=== PATIENT | male | born 1955 | race African-American/Black ===

== ENCOUNTER 2016-10-31 12:07 | Observation (INO) | payer BC ==
[2016-10-31] VITALS (7 sets, daily range): BP systolic 105–158; BP diastolic 54–104
[~2016-10-31] VITALS: Ht 180.3 cm; Wt 98.9 kg
--- NOTE | ~2016-10-31 | 2DMMODE ---
[facility] [address] [facility] [place] [address] 2 D/M-MODE ECHOCARDIOGRAM Name: JD CASTAÑEDA Room #: 203-P [facility] IN M.R.#: [id number] Admission: 10/31/16 Attend Phys: Cedric Marquez, Discharge: Date of : 53 Date of Service: 11/01/16 1134 Report #: [id number] THIS REPORT FOR: //name// APPROVED REPORT Study performed: 11/01/2016 08:20:26 EXAM: Comprehensive 2D, Doppler, and color-flow Echocardiogram Patient Location: Bedside Room #: 203 Status: routine BSA: 2.19 BP: 130/76 mmHg Other Information Study Quality: Adequate Indications Atrial Fibrillation 2D Dimensions RVDd: 39.36 mm LVEF(%): 75.10 (>50%) IVSd: 10.01 (7-11mm) LVOT Diam: 21.34 (18-24mm) LVDd: 45.65 mm PWd: 9.79 (7-11mm) Ascending Ao: 34.20 (22-36mm) LVDs: 25.66 (25-40mm) Aortic Root: 33.58 mm IVC: 2.00 mm White's LVEF: 75.10 % Volumes Left Atrial Volume (Systole) Single Plane 4CH: 56.07 mL Single Plane 2CH: 68.21 mL LA ESV Index: 32.00 mL/m2 Aortic Valve AoV Peak Parmjit.: 1.72 m/s AO Peak Gr.: 11.83 mmHg LVOT Max P.89 mmHg LVOT Max V: 1.11 m/s JEFFREY Vmax: 2.30 cm2 Mitral Valve E/A Ratio: 1.1 MV Decel. Time: 237.09 ms MV E Max Parmjit.: 0.70 m/s [facility] [place] [address] 2 D/M-MODE ECHOCARDIOGRAM Name: JD CASTAÑEDA Room #: 203-P [facility] IN M.R.#: [id number] Admission: 10/31/16 Attend Phys: Cedric Marquez, Discharge: Date of : 53 Date of Service: 11/01/16 1134 Report #: [id number] MV A Parmjit.: 0.65 m/s MV PHT: 68.76 ms IVRT: 96.89 ms Pulmonary Vein P Vein S: 0.39 m/s P Vein A: 0.30 m/s P Vein D: 0.25 m/s P Vein A Dur.: 124.6 msec P Vein S/D Ratio: 1.56 Tricuspid Valve TR Peak Parmjit.: 2.34 m/s RAP Estimate: 5.00 mmHg TR Peak Gr.: 21.90 mmHg PA Pressure: 27.00 mmHg Left Ventricle The left ventricle is normal size. There is normal LV segmental wall motion. There is normal left ventricular wall thickness. The left ventricular systolic function is normal. The left ventricular ejection fraction is within the normal range. LVEF is 65-70%. Grade II - pseudonormal filling dynamics. Right Ventricle The right ventricle is normal size. The right ventricular systolic function is normal. Atria The left atrium size is normal. Right atrium is dilated. Aortic Valve The aortic valve is not well visualized. No aortic regurgitation is present. There is no aortic valvular stenosis. Mitral Valve Mitral valve leaflets are mildly thickened. Trace mitral regurgitation. No evidence of mitral valve stenosis. Tricuspid Valve The tricuspid valve is normal in structure. There is trace tricuspid regurgitation. The right atrial pressure is estimated at 5 mmHg. There is no pulmonary hypertension with an estimated PAP of 27 mmHg. Pulmonic Valve The pulmonary valve is normal in structure. Trace pulmonic regurgitation. [address] [address] 2 D/M-MODE ECHOCARDIOGRAM Name: JD CASTAÑEDA Room #: 203-P [facility] IN ..#: [id number] Admission: 10/31/16 Attend Phys: Cedric Marquez, Discharge: Date of : 53 Date of Service: 11/01/16 1134 Report #: [id number] Great Vessels The aortic root is normal in size. The ascending aorta is normal in size. IVC is normal in size and collapses >50% with inspiration. Pericardium There is no pericardial effusion. <Conclusion> The left ventricle is normal size. LVEF is 65-70%. Right atrium is dilated. The aortic valve is not well visualized. No aortic regurgitation is present. There is no aortic valvular stenosis. Mitral valve leaflets are mildly thickened. Trace mitral regurgitation. The tricuspid valve is normal in structure. There is trace tricuspid regurgitation. The right atrial pressure is estimated at 5 mmHg. There is no pulmonary hypertension with an estimated PAP of 27 mmHg. The pulmonary valve is normal in structure. Trace pulmonic regurgitation. <ELECTRONICALLY SIGNED> By: Gregorio Chisholm MD 11/01/16 1134 1134 1134 Gregorio Chisholm MD /INF
--- NOTE | ~2016-10-31 | EKG ---
[address] [address] ELECTROCARDIOGRAM REPORT Name: JD CASTAÑEDA Room #: [address] [place] [address].#: [id number] Admission: 10/31/16 Attend Phys: Cedric Marquez MD Discharge: 11/01/16 Date of : 53 Report #: [id number] THIS REPORT FOR: //name// [facility] Test Date: 2016-11-01 Test Time: 06:25:58 Pat Name: JD CASTAÑEDA Department: Room: [facility] Gender: M [employer]: : 1955 Requested By: Kwaku Mack Order Number: [id number] MD: Ayaz Henderson Measurements Intervals [place] Rate: 58 P: 0 CO: 208 QRS: 56 QRSD: 91 T: 147 QT: 401 QTc: 394 Interpretive Statements Incomplete EKG Sinus rhythm Nonspecific ST and T wave abnormality Compared to ECG 10/31/2016 12:12:11 Sinus rhythm has replaced atrial flutter Electronically Signed On 11-02-2016 10:02:10 CDT by Ayaz Henderson [email or web address] <ELECTRONICALLY SIGNED> By: Ayaz Henderson MD, [facility] 11/02/16 1002 0625 0625 Ayaz Henderson MD, [facility] /EPI
--- NOTE | ~2016-10-31 | EKG ---
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
[2016-10-31 12:28] LABS: BASOPHILS 0.9 % (0.0-2.0); EOSINOPHILS 1.9 % (0.0-3.0); MCH 29.9 pg (26.0-34.0); MCV 87.8 fL (80.0-100.0); MONOCYTES 5.8 % (1.0-8.0); PLATELET COUNT 205 thou/uL (150-400); POLYS 52.4 % (36.0-66.0); RDW 13.4 % (10.5-14.5); WBC 5.8 thou/uL (4.0-11.0)
[2016-10-31 12:33] LABS: MANUAL DIFF NO
[2016-10-31 12:35] LABS: ANION GAP 9 mmol/L (7-16); BUN 14 mg/dL (7-18); CHLORIDE 108 mmol/L (98-107); CO2 26 mmol/L (21-32); CREATININE 1.2 mg/dL (0.7-1.3); GLUCOSE 153 mg/dL (74-106); SODIUM 143 mmol/L (136-145)
[2016-10-31 12:44] LABS: TROPONIN-I < 0.04 ng/mL (<0.04-0.07)
[2016-11-01 04:01] VITALS: BP 109/65
[2016-11-01 06:12] VITALS: BP 126/87
[2016-11-01 07:21] VITALS: BP 130/76
[2016-11-01 08:54] LABS: CALCIUM 8.5 mg/dL (8.5-10.1); CREATININE 1.3 mg/dL (0.7-1.3); MAGNESIUM 1.9 mg/dL (1.8-2.4); POTASSIUM 4.2 mmol/L (3.5-5.1)
[2016-11-01 11:34] VITALS: BP 149/81
[2016-11-01 16:14] VITALS: BP 149/81
[2016-11-01 17:24] VITALS: BP 149/81
== END 2016-11-01 17:48 | disposition home or self-care (01) ==
LOC: ER 12:07 → 2N 15:47 → EROBS 15:47 → 2N 17:37
PROVIDERS: Emergency Medicine; Internal Medicine
DX: I48.92 Unspecified atrial flutter (principal); R06.00 Dyspnea, unspecified; I10 Essential (primary) hypertension; R42 Dizziness and giddiness; R00.0 Tachycardia, unspecified; F17.210 Nicotine dependence, cigarettes, uncomplicated; Z72.89 Other problems related to lifestyle
CPT/HCPCS: 10081

== ENCOUNTER → 2017-03-31 | Outpatient (CLI) | payer BC ==
[~2017-03-31] MED LIST: ELIQUIS5 MG PO; TOPROL XL100 MG PO
== END ==
LOC: NUC 07:34
DX: I48.92 Unspecified atrial flutter (principal); R94.31 Abnormal electrocardiogram [ECG] [EKG]; I48.91 Unspecified atrial fibrillation; Z87.891 Personal history of nicotine dependence

== ENCOUNTER → 2017-04-05 | Outpatient (CLI) | payer BC ==
[~2017-04-05] VITALS: Ht 180.3 cm; Wt 100.2 kg
--- NOTE | ~2017-04-05 | TEE ---
[facility] [address] [place] [address] TRANSESOPHAGEAL ECHOCARDIOGRAM Name: JD CASTAÑEDA Room #: REG CL [facility]#: [id number] Admission: 04/05/17 Attend Phys: Ayaz Henderson, Discharge: Date of : 53 Date of Service: 04/05/17 0933 Report #: [id number] THIS REPORT FOR: //name// APPROVED REPORT Study performed: 04/05/2017 08:01:49 EXAM: Comprehensive 2D, Doppler, and color-flow Echocardiogram Patient Location: [facility] area Room #: 9 Status: routine BSA: 2.20 HR: 125 bpm BP: 125/89 mmHg Other Information Study Quality: Excellent Indications Atrial Fibrillation Echo Enhancing Agent Indication: Rule out Shunt Agent(s) / Amount(s) Used: Agitated Saline 7 cc Procedure After obtaining informed consent, patient underwent transesophageal echo in the [employer]. Type of Sedation : Conscious Sedation Sedation was administered by Torrie Martinez RN. Sedation start time: 804 Case end Time: 812 Sedation was achieved intravenously with: Versed (6 mg) Fentanyl (50 mcg) Transesophageal probe was inserted and advanced into esophagus without difficulty by Ayaz Henderson MD. Echo enhancement indication: R/O Septal defect. Echo enhancement agent administered: Agitated Saline The was performed without complications. Throughout the procedure, the blood pressure, pulse oximetry, cardiac rhythm, and rate were monitored. The patient tolerated the procedure without adverse effects. Recovery from conscious sedation was uneventful and vital signs were stable. [facility] [address] [place] [address] TRANSESOPHAGEAL ECHOCARDIOGRAM Name: JD CASTAÑEDA Room #: REG CL Precious#: [id number] Admission: 04/05/17 Attend Phys: Ayaz Henderson, Discharge: Date of : 53 Date of Service: 04/05/17 0933 Report #: [id number] Left Ventricle The left ventricle is normal size. There is normal left ventricular wall thickness. The left ventricular systolic function is normal. The left ventricular ejection fraction is within the normal range. LVEF is 60%. Right Ventricle The right ventricle is normal size. The right ventricular systolic function is normal. Atria Left atrium is dilated. No masses or clots in the left atrium or left atrial appendage. Interatrial septum is intact without evidence of ASD or PFO. Right atrium is dilated. Aortic Valve The aortic valve is normal in structure. No aortic regurgitation is present. There is no aortic valvular stenosis. Mitral Valve The mitral valve is normal in structure. Mild mitral regurgitation. No evidence of mitral valve stenosis. Tricuspid Valve The tricuspid valve is normal in structure. Mild tricuspid regurgitation. Pulmonic Valve The pulmonary valve is normal in structure. There is no pulmonic valvular regurgitation. Great Vessels The aortic root is normal in size. Pericardium There is no pericardial effusion. <Conclusion> The left ventricular systolic function is normal. LVEF is 60%. No shunting by contrast bubble injection Both atria are dilated. No masses or clots in the left atrium or left atrial appendage. The aortic valve is normal in structure. No aortic regurgitation or stenosis The mitral valve is normal in structure. Mild mitral [facility] [address] [address] TRANSESOPHAGEAL ECHOCARDIOGRAM Name: JD CASTAÑEDA Room #: REG [facility]#: [id number] Admission: 04/05/17 Attend Phys: Ayaz Henderson, Discharge: Date of : 53 Date of Service: 04/05/17932 Report #: [id number] regurgitation. Minimal atherosclerosis in thoracic aorta, no aneurysm There is no pericardial effusion. <ELECTRONICALLY SIGNED> By: Ayaz Henderson MD, [facility] 04/05/17932 2 2 Ayaz Henderson MD, [facility] /INF
[2017-04-05 07:30] VITALS: BP 142/90
== END | disposition home or self-care (01) ==
LOC: CATH 06:31
DX: I34.0 Nonrheumatic mitral (valve) insufficiency (principal); I07.1 Rheumatic tricuspid insufficiency; I70.0 Atherosclerosis of aorta; F17.210 Nicotine dependence, cigarettes, uncomplicated; Z98.890 Other specified postprocedural states; Z79.899 Other long term (current) drug therapy

== ENCOUNTER 2017-04-06 06:35 | Observation (INO) | payer BC ==
[~2017-04-06] VITALS: Ht 180.3 cm; Wt 104.1 kg
--- NOTE | ~2017-04-06 | D ---
[facility] [place] [place] [address] DISCHARGE SUMMARY Name: JD CASTAÑEDA Room #: DEP BESS Lang#: [id number] Admission: 04/06/17 Attend Phys: Gume Jauregui MD Discharge: 04/07/17 Date of : 53 Report #: [id number] THIS REPORT FOR: //name// CC: Rashi Jauregui DISCHARGE DIAGNOSES: Atrial flutter. PROCEDURES PERFORMED: Atrial flutter ablation. HISTORY: The patient is a 61-year-old with history of recurrent atrial flutter, who is here for elective ablation. He underwent successful ablation of a clockwise typical atrial flutter. The procedure was straightforward and without complications. In holding, he coughed and had some rebleeding from the right groin and several hours later, he had another coughing spell and had some mild bleeding from the right groin. Therefore, I recommended that he stay overnight to ensure hemostasis was obtained. HOSPITAL COURSE: He was monitored overnight and did well. Telemetry remained in sinus rhythm. Following day, his groin looked to be within normal limits. He denied any chest pain or shortness of breath. As such, he was deemed stable for discharge home with followup with me in 3 months. He will continue his current anticoagulation and beta-bhargavi and see me at that time. <ELECTRONICALLY SIGNED> By: Gume Jauregui MD 04/07/17 1642 Gume Jauregui MD /abdifatah
--- NOTE | ~2017-04-06 | P ---
[facility] [place] [address] PROCEDURE REPORT Name: JD CASTAÑEDA Room #: 210-P [facility] Donna Lang#: [id number] Admission: 04/06/17 Attend Phys: Gume Jauregui MD Discharge: 04/07/17 Date of : 53 Report #: [id number] THIS REPORT FOR: //name// CC: Rashi Jauregui PREOPERATIVE DIAGNOSIS: Typical atrial flutter. POSTOPERATIVE DIAGNOSIS: Typical atrial flutter. PROCEDURES PERFORMED: 1. Ablation of SVT, CPT code 00457. 2. EP left atrial pacing and recording, CPT code 51802. 3. Program stimulation after IV, CPT code 77782. 4. 3D mapping EP, CPT code 61790. HISTORY: The patient has a history of recurrent atrial flutter and is here for an ablation. ANESTHESIA: The patient underwent MAC anesthesia with no anesthesia-related complications. DESCRIPTION OF PROCEDURE: The patient underwent informed consent. We discussed the details of the procedure including risks, which include but not limited to bleeding, vascular damage, cardiac perforation, stroke, NM and damage to the catawba conduction system requiring permanent pacemaker. He understood these risks and was willing to proceed. As such, the patient was brought to the EP laboratory in fasting and unsedated state and prepped and draped in a sterile fashion. Next, I obtained access to the right femoral vein x 3. I placed short sheaths using the modified Seldinger technique. I placed an 8-Finnish and two 7-Finnish locking sheaths. Under fluoroscopy, I placed a decapolar catheter easily in the coronary sinus and a Halo catheter into the right atrium. The patient at baseline was in atrial flutter with atrial cycle length of 240-260 milliseconds. The activation was proximal to distal along the coronary sinus and was clockwise along the Halo catheter in the right atrium. Next, pacing was performed from the CS and from the right atrium. The post-pacing interval minus tachycardia cycle length was anywhere from 20-60 milliseconds. There was some wobble in the atrial cycle length. Next, I placed an 8 mm ablation catheter into the right atrium and I created a 3D geometry and activation map which was consistent with cavotricuspid isthmus dependent flutter. Next, I placed a ramp sheath into the right atrium and placed the 8 mm ablation catheter into the ramp sheath and performed ablation at 6:00 along the cavotricuspid isthmus. Next, ablation was performed at 6:00 along the cavotricuspid isthmus. There was acute termination along the posterior aspect of my line. Initially, the transisthmus conduction time was 135 milliseconds with an activation sequence consistent with bidirectional [facility] [address] [place] [address] PROCEDURE REPORT Name: JD CASTAÑEDA Room #: 210-P [facility] Donna Lang#: [id number] Admission: 04/06/17 Attend Phys: Gume Jauregui MD Discharge: 04/07/17 Date of : 53 Report #: [id number] block. I decided to perform additional ablation guided by sharp electrograms and performed a more lateral line. This resulted in a transisthmus conduction time of 165 milliseconds with evidence of bidirectional block. Post-ablation and EP study was performed. Atrial burst pacing was performed and AV block was noted at 340 milliseconds. AV tam ERP was noted at 270 milliseconds at a [address] cycle length and there were single AV tam echoes noted. Isoproterenol infusion was initiated at 1 mcg per minute and AV block was noted at 230 milliseconds and atrial ERP was noted at 200 milliseconds at a [address] cycle length. Isoproterenol was discontinued and I continued performing an EP study. There were no other inducible arrhythmias noted. Post-ablation, the patient remained in sinus rhythm with no other arrhythmias noted. As such, all catheters and sheaths were pulled. Hemostasis obtained. The patient awoke neurologically and hemodynamically intact with no complications and no significant bleeding. CONCLUSIONS: 1. Successful ablation of typical cavotricuspid isthmus dependent flutter with evidence of bidirectional block post-ablation. 2. Normal SA tam function. 3. Normal AV tam function. 4. Normal His-Purkinje function. 5. No other inducible arrhythmias on or off isoproterenol infusion. <ELECTRONICALLY SIGNED> By: Gume Jauregui MD 04/25/17 0904 1136 48 Gume Jauregui MD /nt
[2017-04-06 06:50] VITALS: BP 120/90
[2017-04-06 07:10] LABS: ABSOLUTE NEUTROPHILS 2.6 thou/uL (1.4-8.2); BASOPHILS 1.1 % (0.0-2.0); EOSINOPHILS 2.9 % (0.0-3.0); HEMATOCRIT 48.7 % (42.0-52.0); HEMOGLOBIN 16.9 gm/dL (14.0-18.0); LYMPHOCYTES 46.5 % (24.0-44.0); MCH 30.1 pg (26.0-34.0); MCHC 34.8 g/dL (28.0-37.0); MCV 86.4 fL (80.0-100.0); MONOCYTES 6.5 % (1.0-8.0); PLATELET COUNT 235 thou/uL (150-400); RBC 5.63 mil/uL (4.50-6.00); RDW 13.5 % (10.5-14.5); WBC 6.1 thou/uL (4.0-11.0)
[2017-04-06 07:29] LABS: CALCIUM 8.7 mg/dL (8.5-10.1); CREATININE 1.4 mg/dL (0.7-1.3); POTASSIUM 4.3 mmol/L (3.5-5.1)
[2017-04-06 07:35] LABS: ALBUMIN 3.7 g/dL (3.4-5.0); TOTAL BILIRUBIN 0.4 mg/dL (<0.1-1.0); TOTAL PROTEIN 7.1 g/dL (6.4-8.2)
[2017-04-06 07:40] LABS: APTT 27.9 Seconds (24.5-32.8); PROTIME 10.2 Seconds (9.3-11.4)
[2017-04-06 19:17] VITALS: BP 111/73
[2017-04-07] VITALS: BP 114/58
[2017-04-07 00:50] VITALS: BP 114/58
[2017-04-07 04:41] VITALS: BP 115/70
[2017-04-07 05:03] VITALS: BP 114/58
[2017-04-07 09:00] VITALS: BP 121/70
[2017-04-07 09:49] VITALS: BP 121/70
== END 2017-04-07 10:22 | disposition home or self-care (01) ==
LOC: CATH 06:35 → 2N 16:00 → CATH 16:01 → 2N 16:01 → ENTRNSPT 04-07 10:11 → EDTRNSPTSTS 04-07 10:13 → 2N 04-07 10:22 → CATH 04-07 10:22 → 2N 04-07 10:22
PROVIDERS: Internal Medicine Cardiovascular Disease
DX: I48.3 Typical atrial flutter (principal); I10 Essential (primary) hypertension; F17.210 Nicotine dependence, cigarettes, uncomplicated
CPT/HCPCS: 62110; 62900; 70005

== ENCOUNTER → 2017-12-12 | Outpatient (CLI) | payer BC ==
--- NOTE | ~2017-12-12 | O ---
[facility] [place] [address] OPERATIVE REPORT Name: JD CASTAÑEDA Room #: REG [facility]#: [id number] Admission: 12/12/17 Attend Phys: Cornelio Rivera MD Discharge: Date of : 53 Report #: [id number] THIS REPORT FOR: //name// CC: Indigo Xavier DO Cornelio Rivera DATE OF SERVICE: 12/12/2017 REFERRING PHYSICIAN: Indigo Moon, Nurse practitioner; Dr. Rashi Xavier. CLINICAL HISTORY: A 62-year-old male with right hilar lung mass. A diagnostic bronchoscopy was performed. POSTOPERATIVE DIAGNOSES: 1. Endobronchial lesion involving the orifice of the right upper lobe. 2. 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 DESCRIPTION OF PROCEDURE: Following obtained consent and risks and benefits had been explained to the patient which included infection, bleeding, pneumothorax, procedure was performed in endoscopy suite. The patient received 4% aerosolized lidocaine to the upper airways. He also received total of 4 mg of Versed, 100 mcg of fentanyl IV push. Lidocaine 2% and 1% lidocaine was also used for the upper airways. Then, a flexible fiberoptic bronchoscope was then introduced to the left naris without difficulty. The epiglottis was normal. Vocal cords were normal. Trachea was normal, emily was normal. Left main stem bronchus, left upper lobe and left lower lobe were normal. Right mainstem bronchus was normal. Right upper lobe shows 2 discrete endobronchial lesions seen at the orifice of the right upper lobe. The right upper lobe lumen was moderately obstructed down to about 30%. Bronchus intermedius, right middle lobe and right lower lobe were grossly unremarkable. Bronchial biopsy was performed x 3 at the endobronchial lesions. There was moderate bleeding following the third biopsy. Cold saline washes were performed. Following this procedure, bleeding appears to have stopped. Bronchial wash was performed. The bronchial biopsy will be sent for pathology. Bronchial wash will be sent for cytology. [address] [address] OPERATIVE REPORT Name: JD CASTAÑEDA Room #: REG [facility]#: [id number] Admission: 12/12/17 Attend Phys: Cornelio Rivera MD Discharge: Date of : 53 Report #: [id number] Vital signs and saturation throughout the study were within the normal range. The patient tolerated the procedure well. COMPLICATIONS: Minimal bleeding, right upper lobe. Findings were discussed with the patient's . He will follow up in the office in approximately 2 weeks following his PET scan, which will be on 12/27/2017. <ELECTRONICALLY SIGNED> By: Cornelio Rivera MD 12/19/17 1935 1134 1152 Cornelio Rivera MD /nt
--- NOTE | ~2017-12-12 | PATH ---
[facility] [address] [place] [address] PATHOLOGY RPT PROCEDURE Name: JD CASTAÑEDA Room #: REG [facility] Binh.#: [id number] Admission: 12/12/17 Date of : 53 Discharge: Report #: [id number] Path Case #: [id number] [facility] Accession Number: [id number] . 01 Material submitted: . BIOPSY FORCEPS RUL . 01 Clinical history: . None provided . 02 Diagnosis: Lung, right upper lobe, forceps biopsy: - MINUTE 1 MM FRAGMENT SHOWING EXTENSIVE CRUSH ARTIFACT AND FEATURES COMPATIBLE WITH SMALL CELL CARCINOMA (PLEASE SEE COMMENT). . (IUV:nithin; 12/14/2017) QMS/12/14/2017 . 02 Comment: Examination shows a 1 mm fragment of small blue cells with extensive crush artifact. There is no necrosis identified. Morphological features are obscured due to crush artifact. Immunohistochemical stains are performed on block A1 based on the procedure note. TTF-1 shows strong nuclear reactivity. CD56 shows membranous reactivity in the minute fragment. AE1/AE3 shows perinuclear dot-like reactivity. Synaptophysin shows reactivity within less than five cells remaining in the block after multiple stains. CD45 is non-reactive. Please note, the tissue is lost and no additional studies can be ordered on this block . . Co-review: Dr. Holly Winter . Findings are telephoned to Dr. Cornelio Mcadams's office staff, at 11:40 a.m. on 12/14/2017. . (IUV:nithin; 12/14/2017) . 02 Electronically signed: . Nelly Jackson MD, Pathologist NPI- [id number] . 01 Gross description: . The specimen is received in formalin, labeled "Jd Castañeda, biopsy forceps RUL" and consists of multiple small fragments of mcwilliams tissue measuring 0.6 x 0.3 x 0.1 cm in aggregate which are entirely submitted in A1. (SD; 12/12/2017) [place] [address] PATHOLOGY RPT PROCEDURE Name: JD CASTAÑEDA Room #: REG CLElizabeth Lang#: [id number] Admission: 12/12/17 Date of : 53 Discharge: Report #: [id number] Path Case #: [id number] . 02 Pathologist provided ICD-10: C34.91 . 02 CPT . 975586, L34745, E35939 Specimen Comment: Report sent to Specimen Comment: Report sent to Dr CARDONA / DR MORGAN Performed at: [address], [place], [place] [id number] MD Jude Henry MD Phone: [phone] Performed at: [address] [id number] MD Nelly Jackson MD Phone: [phone]
--- NOTE | ~2017-12-12 | PATH ---
[facility] [address] [place] [address] PATHOLOGY RPT PROCEDURE Name: JD CASTAÑEDA Room #: REG BESS Lang#: [id number] Admission: 12/12/17 Date of : 53 Discharge: Report #: [id number] Path Case #: [id number] Note [facility] Accession Number: [id number] TESTS RESULT FLAG UNITS REF RANGE LAB Clinician Provided Cytology Information No. of containers..01 Other (Miscellaneous) Source: BAL DIAGNOSIS: 02 BAL NEGATIVE FOR MALIGNANT CELLS. NORMAL BRONCHIAL CELLS AND MACROPHAGES ARE PRESENT. PULMONARY MACROPHAGES (DUST CELLS) ARE PRESENT. RED BLOOD CELLS ARE PRESENT ALONG WITH ELEMENTS OF PERIPHERAL BLOOD. THIS INTERPRETATION INCLUDES EVALUATION OF A CELL BLOCK. Signed out by: 02 Nelly Jackson MD, Pathologist NPI- [id number] Performed by: 01 Sue García, Home Administrator ([facility]) Gross description: 01 8ML, RED, SOLID /LCS FLAG LEGEND: L-Low Normal,H-High Normal,LL-Alert Low,HH-Alert High <-Panic Low,>-Panic High,A-Abnormal,AA-Critical Abnormal Performed at: [address] [place] [address] Jude Henry MD, [address] [address] Nelly Jackson MD, Specimen Comment: A courtesy copy of this report has been sent to Specimen Comment: [phone]. Specimen Comment: Report sent to Specimen Comment: A duplicate report has been generated due to demographic updates. Performed at: [address], [place], [place] [id number] MD Jude Henry MD Phone: [phone]
== END | disposition home or self-care (01) ==
LOC: CATH 06:29
DX: C34.11 Malignant neoplasm of upper lobe, right bronchus or lung (principal); J98.4 Other disorders of lung; I50.30 Unspecified diastolic (congestive) heart failure; J43.9 Emphysema, unspecified; I11.0 Hypertensive heart disease with heart failure; I48.92 Unspecified atrial flutter; Z98.890 Other specified postprocedural states; Z79.899 Other long term (current) drug therapy

== ENCOUNTER → 2017-12-23 | Outpatient (CLI) | payer BC | LOC: PET 08:34 | DX: C34.90 Malignant neoplasm of unspecified part of unspecified bronchus or lung (principal); R91.8 Other nonspecific abnormal finding of lung field ==

== ENCOUNTER → 2018-01-02 | Outpatient (CLI) | payer BC | LOC: CAT 14:15 → PET 14:15 | DX: C34.91 Malignant neoplasm of unspecified part of right bronchus or lung (principal); R91.8 Other nonspecific abnormal finding of lung field; R41.844 Frontal lobe and executive function deficit ==

== ENCOUNTER → 2018-01-09 | Outpatient (CLI) | payer BC ==
[2018-01-09 10:42] LABS: ABSOLUTE NEUTROPHILS 2.9 thou/uL (1.4-8.2); BASOPHILS 0.6 % (0.0-2.0); HEMATOCRIT 45.4 % (42.0-52.0); HEMOGLOBIN 15.1 gm/dL (14.0-18.0); LYMPHOCYTES 33.5 % (24.0-44.0); MCH 28.9 pg (26.0-34.0); MCHC 33.3 g/dL (28.0-37.0); MCV 86.8 fL (80.0-100.0); MONOCYTES 7.9 % (1.0-8.0); PLATELET COUNT 219 thou/uL (150-400); RBC 5.23 mil/uL (4.50-6.00); RDW 13.3 % (10.5-14.5); WBC 5.2 thou/uL (4.0-11.0)
[2018-01-09 10:59] LABS: ALBUMIN 3.5 g/dL (3.4-5.0); CALCIUM 8.8 mg/dL (8.5-10.1); CREATININE 1.3 mg/dL (0.7-1.3); POTASSIUM 4.4 mmol/L (3.5-5.1); TOTAL BILIRUBIN 0.6 mg/dL (<0.1-1.0); TOTAL PROTEIN 6.9 g/dL (6.4-8.2)
== END ==
LOC: LABMALL 09:41 → MRI 09:41
PROVIDERS: Internal Medicine Hematology & Oncology
DX: C34.11 Malignant neoplasm of upper lobe, right bronchus or lung (principal); I67.82 Cerebral ischemia; R91.8 Other nonspecific abnormal finding of lung field

== ENCOUNTER 2018-03-11 10:21 | Emergency (ER) | payer BC ==
[~2018-03-11] VITALS: Ht 177.8 cm; Wt 98.9 kg
[2018-03-11 11:50] LABS: HEMATOCRIT 36.2 % (42.0-52.0); HEMOGLOBIN 12.6 gm/dL (14.0-18.0); MCH 30.3 pg (26.0-34.0); MCHC 34.7 g/dL (28.0-37.0); MCV 87.4 fL (80.0-100.0); PLATELET COUNT 155 thou/uL (150-400); RBC 4.14 mil/uL (4.50-6.00); RDW 14.9 % (10.5-14.5); WBC 2.6 thou/uL (4.0-11.0)
[2018-03-11 11:59] LABS: CALCIUM 9.5 mg/dL (8.5-10.1); CREATININE 1.4 mg/dL (0.7-1.3); POTASSIUM 4.7 mmol/L (3.5-5.1)
[2018-03-11 12:04] LABS: ALBUMIN 3.7 g/dL (3.4-5.0); DIRECT BILIRUBIN < 0.1 mg/dL (<0.1-0.3); SGOT 21 U/L (15-37); SGPT 39 U/L (30-65); TOTAL BILIRUBIN 0.3 mg/dL (<0.1-1.0); TOTAL PROTEIN 7.3 g/dL (6.4-8.2)
[2018-03-11 12:19] LABS: APTT 24.8 Seconds (24.5-32.8)
[2018-03-11 12:32] LABS: URINE BILIRUBIN NEGATIVE (Negative); URINE BLOOD 3+ (Negative); URINE CLARITY CLEAR; URINE COLOR YELLOW; URINE GLUCOSE-RANDOM* NEGATIVE (Negative); URINE KETONES NEGATIVE (Negative); URINE LEUKOCYTES-REFLEX NEGATIVE (Negative); URINE NITRITE-REFLEX NEGATIVE (Negative); URINE PROTEIN (DIPSTICK) NEGATIVE (Negative); URINE SPECIFIC GRAVITY 1.015 (1.005-1.035); URINE UROBILINOGEN 0.2 E.U./dl (0.2-1.0)
[2018-03-11 12:49] LABS: CASTS None Seen /LPF (None Seen); SQUAMOUS 0-3 Few /LPF (0-3)
[2018-03-11 12:50] LABS: BACTERIA-REFLEX None Seen /HPF (None Seen); CRYSTALS None Seen /LPF (None Seen); URINE RBC >20 Many /HPF (0-2); URINE WBC-REFLEX 0-5 Rare /HPF (0-5)
[2018-03-11 12:51] LABS: ABSOLUTE NEUTROPHILS 1.7 thou/uL (1.4-8.2); ANISOCYTOSIS 1+
[2018-03-11] MEDS ORDERED: PYRIDIUM200 MG PO (14:50)
[2018-03-11 15:11] VITALS: BP 131/72
== END 2018-03-11 15:13 | disposition home or self-care (01) ==
LOC: ER 10:21
PROVIDERS: Student in an Organized Health Care Education/Training Program
DX: D70.9 Neutropenia, unspecified (principal); R31.9 Hematuria, unspecified; F17.210 Nicotine dependence, cigarettes, uncomplicated; I48.92 Unspecified atrial flutter; Z85.118 Personal history of other malignant neoplasm of bronchus and lung

== ENCOUNTER → 2018-04-06 | Outpatient (CLI) | payer BC ==
[~2018-04-06] MED LIST changes: +PYRIDIUM200 MG PO
== END ==
LOC: RAD 12:03
DX: J43.9 Emphysema, unspecified (principal); J98.4 Other disorders of lung

== ENCOUNTER → 2018-05-10 | Outpatient (CLI) | payer BC | LOC: RAD 13:06 | DX: C34.11 Malignant neoplasm of upper lobe, right bronchus or lung (principal) ==

== ENCOUNTER 2018-09-11 19:01 | Emergency (ER) | payer BC ==
[~2018-09-11] VITALS: Ht 177.8 cm; Wt 102.1 kg
[2018-09-11 21:13] LABS: CALCIUM 9.1 mg/dL (8.5-10.1); CREATININE 1.4 mg/dL (0.7-1.3); POTASSIUM 4.4 mmol/L (3.5-5.1)
[2018-09-11 22:36] VITALS: BP 131/88
== END 2018-09-11 22:37 | disposition home or self-care (01) ==
LOC: ER 19:01
PROVIDERS: Emergency Medicine
DX: R25.2 Cramp and spasm (principal); I10 Essential (primary) hypertension; F17.210 Nicotine dependence, cigarettes, uncomplicated; Z85.118 Personal history of other malignant neoplasm of bronchus and lung

== ENCOUNTER → 2018-10-02 | Outpatient (CLI) | payer BC | LOC: RAD 13:07 | DX: C34.11 Malignant neoplasm of upper lobe, right bronchus or lung (principal) ==

== ENCOUNTER 2018-11-05 10:10 | Emergency (ER) | payer BC ==
[~2018-11-05] VITALS: Ht 177.8 cm; Wt 104.3 kg
[2018-11-05 11:57] LABS: ABSOLUTE NEUTROPHILS 2.2 thou/uL (1.4-8.2); BASOPHILS 0.9 % (0.0-2.0); EOSINOPHILS 3.1 % (0.0-3.0); HEMATOCRIT 39.1 % (42.0-52.0); HEMOGLOBIN 13.5 gm/dL (14.0-18.0); LYMPHOCYTES 31.2 % (24.0-44.0); MCHC 34.6 g/dL (28.0-37.0); MCV 83.8 fL (80.0-100.0); PLATELET COUNT 199 thou/uL (150-400); POLYS 54.8 % (36.0-66.0); RBC 4.66 mil/uL (4.50-6.00); RDW 15.4 % (10.5-14.5)
[2018-11-05 12:00] LABS: URINE BILIRUBIN NEGATIVE (Negative); URINE BLOOD NEGATIVE (Negative); URINE CLARITY CLEAR; URINE COLOR YELLOW; URINE GLUCOSE-RANDOM* NEGATIVE (Negative); URINE KETONES NEGATIVE (Negative); URINE LEUKOCYTES-REFLEX NEGATIVE (Negative); URINE NITRITE-REFLEX NEGATIVE (Negative); URINE PROTEIN (DIPSTICK) NEGATIVE (Negative); URINE UROBILINOGEN 0.2 E.U./dl (0.2-1.0)
[2018-11-05 12:07] LABS: ANION GAP 7 mmol/L (7-16); BUN 15 mg/dL (7-18); CALCIUM 9.4 mg/dL (8.5-10.1); CHLORIDE 105 mmol/L (98-107); CO2 29 mmol/L (21-32); CREATININE 1.3 mg/dL (0.7-1.3); GLUCOSE 106 mg/dL (74-106); POTASSIUM 4.3 mmol/L (3.5-5.1); SODIUM 141 mmol/L (136-145)
[2018-11-05 12:18] LABS: ALBUMIN 3.5 g/dL (3.4-5.0); SGOT 26 U/L (15-37); SGPT 35 U/L (30-65); TOTAL BILIRUBIN 0.3 mg/dL (<0.1-1.0); TOTAL PROTEIN 7.1 g/dL (6.4-8.2); TROPONIN-I <0.06 ng/mL (<0.06)
[2018-11-05 12:53] LABS: PROTIME 10.2 Seconds (9.3-11.4)
[2018-11-05] MEDS ORDERED: DECADRON4 MG PO (13:44)
[2018-11-05 13:48] VITALS: BP 137/81
--- NOTE | 2018-11-05 14:07 | EKG ---
[address] [address] ELECTROCARDIOGRAM REPORT Name: JD CASTAÑEDA [facility] [id number] Admission: 11/05/18 Attend Phys: Discharge: 11/05/18 Date of : 53 Report #: [id number] THIS REPORT FOR: //name// [facility] ED Test Date: 2018-11-05 Test Time: 11:34:32 Pat Name: JD CASTAÑEDA Department: Room: Gender: M [employer]: : 1955 Requested By: Rossana Gregg Order Number: [id number] MD: Ayaz Henderson Measurements Intervals [place] Rate: 64 P: 41 RI: 187 QRS: 53 QRSD: 91 T: 39 QT: 356 QTc: 368 Interpretive Statements Sinus rhythm Normal tracing Compared to ECG 12/05/2017 06:47:41 Left ventricular hypertrophy no longer present Electronically Signed On 11-05-2018 14:07:38 CDT by Ayaz Henderson [email or web address] <ELECTRONICALLY SIGNED> By: Ayaz Henderson MD, [facility] 11/05/18 1407 1134 1134 Ayaz Henderson MD, FACC /EPI
== END 2018-11-05 13:48 | disposition home or self-care (01) ==
LOC: ER 10:10
PROVIDERS: Nurse Practitioner Family
DX: G93.6 Cerebral edema (principal); C79.31 Secondary malignant neoplasm of brain; C34.90 Malignant neoplasm of unspecified part of unspecified bronchus or lung; I48.92 Unspecified atrial flutter; I10 Essential (primary) hypertension; F17.210 Nicotine dependence, cigarettes, uncomplicated; Z98.890 Other specified postprocedural states

== ENCOUNTER 2019-01-02 12:04 | Emergency (ER) | payer BC ==
[~2019-01-02] VITALS: Ht 177.8 cm; Wt 108.0 kg
[~2019-01-02 12:04] MED LIST changes: +DECADRON4 MG PO
[2019-01-02 12:58] LABS: ABSOLUTE NEUTROPHILS 7.2 thou/uL (1.4-8.2); BASOPHILS 0.9 % (0.0-2.0); EOSINOPHILS 0.1 % (0.0-3.0); HEMATOCRIT 38.3 % (42.0-52.0); LYMPHOCYTES 14.3 % (24.0-44.0); MCH 28.8 pg (26.0-34.0); MCV 84.6 fL (80.0-100.0); MONOCYTES 4.9 % (1.0-8.0); PLATELET COUNT 274 thou/uL (150-400); POLYS 79.8 % (36.0-66.0); RBC 4.52 mil/uL (4.50-6.00); WBC 9.1 thou/uL (4.0-11.0)
[2019-01-02] MEDS ORDERED: LISINOPRIL-HCT1 EACH PO (13:08)
[2019-01-02] MEDS ORDERED: AUGMENTIN 875-1 EACH PO (13:09)
[2019-01-02 13:12] LABS: APTT 30.6 Seconds (24.5-32.8); INR 1.1; PROTIME 11.7 Seconds (9.3-11.4)
[2019-01-02 13:17] LABS: ANION GAP 10 mmol/L (7-16); BUN 21 mg/dL (7-18); CALCIUM 9.5 mg/dL (8.5-10.1); CHLORIDE 103 mmol/L (98-107); CO2 25 mmol/L (21-32); CREATININE 1.3 mg/dL (0.7-1.3); GLUCOSE 118 mg/dL (74-106); SODIUM 138 mmol/L (136-145)
[2019-01-02 13:27] LABS: ALBUMIN 3.6 g/dL (3.4-5.0); SGOT 32 U/L (15-37); SGPT 28 U/L (30-65); TOTAL BILIRUBIN 0.3 mg/dL (<0.1-1.0); TOTAL PROTEIN 7.4 g/dL (6.4-8.2); TROPONIN-I <0.06 ng/mL (<0.06)
--- NOTE | 2019-01-02 14:12 | EKG ---
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
[2019-01-02] MEDS ORDERED: DECADRON4 MG PO (14:17)
[2019-01-02 14:42] VITALS: BP 136/72
== END 2019-01-02 14:52 | disposition home or self-care (01) ==
LOC: ER 12:04
PROVIDERS: Emergency Medicine
DX: C79.31 Secondary malignant neoplasm of brain (principal); C34.90 Malignant neoplasm of unspecified part of unspecified bronchus or lung; R56.9 Unspecified convulsions; I10 Essential (primary) hypertension; Z87.891 Personal history of nicotine dependence

== ENCOUNTER 2019-01-13 11:09 | Emergency (ER) | payer BC ==
[~2019-01-13] VITALS: Ht 180.3 cm; Wt 108.0 kg
[~2019-01-13 11:09] MED LIST changes: +AUGMENTIN 875-1 EACH PO; +LISINOPRIL-HCT1 EACH PO
[2019-01-13 12:41] LABS: ABSOLUTE NEUTROPHILS 7.7 thou/uL (1.4-8.2); BASOPHILS 0.7 % (0.0-2.0); EOSINOPHILS 0.6 % (0.0-3.0); HEMATOCRIT 39.2 % (42.0-52.0); HEMOGLOBIN 13.1 gm/dL (14.0-18.0); MCH 28.6 pg (26.0-34.0); MCHC 33.3 g/dL (28.0-37.0); MCV 85.7 fL (80.0-100.0); MONOCYTES 7.7 % (1.0-8.0); PLATELET COUNT 206 thou/uL (150-400); RBC 4.57 mil/uL (4.50-6.00); RDW 16.2 % (10.5-14.5); WBC 10.6 thou/uL (4.0-11.0)
[2019-01-13 12:51] LABS: CALCIUM 9.1 mg/dL (8.5-10.1); CREATININE 1.2 mg/dL (0.7-1.3); POTASSIUM 3.8 mmol/L (3.5-5.1)
[2019-01-13] MEDS ORDERED: NORCO 5-325 TA1 EAC1 PO (15:28)
[2019-01-13] MEDS ORDERED: SENNA-DOCUSATE1 EAC1 PO (15:28)
[2019-01-13 15:38] VITALS: BP 129/81
== END 2019-01-13 15:40 | disposition home or self-care (01) ==
LOC: ER 11:09
PROVIDERS: Emergency Medicine
DX: C77.0 Secondary and unspecified malignant neoplasm of lymph nodes of head, face and neck (principal); I48.92 Unspecified atrial flutter; I10 Essential (primary) hypertension; Z85.118 Personal history of other malignant neoplasm of bronchus and lung; Z85.841 Personal history of malignant neoplasm of brain; Z98.890 Other specified postprocedural states; Z87.891 Personal history of nicotine dependence

== ENCOUNTER → 2019-01-26 | Outpatient (CLI) | payer BC ==
[~2019-01-26] MED LIST changes: +NORCO 5-325 TA1 EAC1 PO; +SENNA-DOCUSATE1 EAC1 PO
--- NOTE | 2019-01-30 17:06 | PATH ---
[facility] [address] [place] [address] PATHOLOGY RPT PROCEDURE Name: JD CASTAÑEDA Room #: REG BESS Purcell.#: [id number] Admission: 01/26/19 Date of : 53 Discharge: Report #: [id number] Path Case #: [id number] [facility] Accession Number: [id number] . 01 Material submitted: . neck - RIGHT NECK MASS. Modifiers: right . 01 Clinician provided ICD-10: R22.1:C22.0 . 01 Clinical history: . Right neck mass Past history small cell carcinoma . 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 (IUV:pit; 01/30/2019) AZJ 01/30/2019 1040 Local . 02 Comment: Examination shows a small blue cell neoplasm with abundant crush artifact, apoptosis as well as high nuclear to cytoplasmic ratio amidst areas of fibrosis. Background or residual lymphoid tissue is not identified. Properly controlled immunohistochemical stains are performed on block A3. The tumor shows perinuclear dot-like reactivity with AE1/AE3, strong nuclear reactivity with TTF-1 and granular cytoplasmic reactivity with synaptophysin. CD45 was performed to assess the neoplasm in a tissue architectural context and it is nonreactive. . Dr. Holly Winter has seen a eligibility services representative slides of this case and concurs with the diagnosis rendered. . Findings of this case are discussed with Dr. Lewis Shannon at approximately 11:10 am on 01/29/2019 and again at 10:25 am on 01/30/2019. . . A portion of this specimen was sent for flow cytometric analysis to [facility] (result number [id number]). It showed findings compatible with a non-hematolymphoid process and no immunophenotypic evidence of a non-Hodgkin B-cell or a T-cell lymphoma in the sample with marked decreased viability. Please see separate report to follow; to be attached as an addendum to the current one, for complete details. (IUV:pit; 01/30/2019) . 02 Addendum: . [address] [address] PATHOLOGY RPT PROCEDURE Name: JD CASTAÑEDA Room #: REG CLElizabeth Lang#: [id number] Admission: 01/26/19 Date of : 53 Discharge: Report #: [id number] Path Case #: [id number] Special studies report received from [facility], [address] [place] [address], [address], [place], [address], on case [id number], labeled with their number [id number], dated 01/29/2019. . Flow Cytometry: Hematologic Neoplasia Assessment . Clinical History Liver cell carcinoma, Localized swelling, mass and lump, Neck . Indication for Study Evaluation for hematolymphoid neoplasia . Specimen Tissue, Rt Neck . Viability 42% (7AAD exclusion) . Interpretation Tissue, Rt Neck: - Findings compatible with a non-hematolymphoid process. See comments. - No immunophenotypic evidence of a non Hodgkin B-cell or a T-cell lymphoma in a sample with markedly decreased viability. . Comments Approximately 26% of analyzed cells are positive for CD56 and CD57, and negative for CD45 and all other marker tested. This population likely represent a non hematolymphoid population that can be benign or malignant (carcinoma, etc). CD56 expression is common in neuroendocrine carcinoma and some other neoplastic process. Hodgkin lymphoma, some large cell lymphomas and some peripheral T-cell lymphomas cannot be categorically excluded by flow cytometric analysis. Clinical correlation and correlation with morphologic findings is necessary for complete evaluation. . This sample is less than 50% viable which is considered suboptimal for routine clinical flow cytometry analysis. The analysis, however, is being reported because the sample is considered irreplaceable. These results must be interpreted in the context of all available clinical, laboratory, and morphologic information. . Populations Analyzed Abnormal Cells: 26% CD45-, CD56+, CD57+, no significant reactivity with the other markers tested modify as needed, HLA DR+, etc. Lymphocytes: 0.2% B-cells are essentially absent. T-cells: no significant abnormalities of the markers tested CD4:CD8: 1.[address] [address] PATHOLOGY RPT PROCEDURE Name: JD CASTAÑEDA Room #: REG BESS Lang#: [id number] Admission: 01/26/19 Date of : 53 Discharge: Report #: [id number] Path Case #: [id number] NK cells: 0.1% Granulocytes: 1% Present Remaining CD45 72% No significant reactivity with markers tested Negative Events/ (may represent degenerated non-hematolymphoid Debris: cells, other degenerated cells, debris, unlysed red blood cells, etc.) . Morphologic Evaluation A slide was reviewed for research quality assurance specialist purposes only. . Specimen Description Cell Yield: 0.63x10 and 6 This sample is less than 50% viable which is considered suboptimal for routine clinical flow cytometry analysis. The analysis, however, is being reported because the sample is considered irreplaceable. Because of diminished viability, these results must be interpreted in the context of all available clinical, laboratory, and morphologic data. . Reagent(s) Used CD2, CD3, CD4, CD5, CD7, CD8, CD10, CD11b, CD19, CD20, CD23, CD30, CD38, CD43, CD45, CD56, CD57, FMC-7, HLA-DR, kappa, lambda . at [employer]. Yue Alarcon MD Pathologist . Intended Use Flow cytometry is optimally used to immunophenotypically characterize abnormal populations when they are detected. Negative flow cytometry results do not exclude lymphoma or neoplasia. Possible false negative flow cytometry results may occur in, but are not limited to, the following: neoplastic cells in Hodgkin lymphoma are not typically adequately represented by routine clinical flow cytometry; neoplastic cells may be lost or inadequately represented due to degeneration, sample processing, sampling artifact, or patchy involvement; plasma cells are typically underrepresented by flow cytometry; immature cells/blasts may be underrepresented due to hemodilution; myeloproliferative disorders and low grade myelodysplasia may not have immunophenotypic abnormalities or increased blasts. Correlation with all available clinical, laboratory, and morphologic data is always necessary to assess for the possibility of false negative flow cytometry results and to establish a diagnosis. Each marker in this analysis was used to assess for potential antigenic abnormalities or to evaluate detected abnormalities. . Disclaimer(s) This test was performed at [facility] [employer]. at [address], [place], [address] - [facility] Attendant: Frank [address] [address] PATHOLOGY RPT PROCEDURE Name: JD CASTAÑEDA Room #: REG [facility]..#: [id number] Admission: 01/26/19 Date of : 53 Discharge: Report #: [id number] Path Case #: [id number] MD Misty. [facility] is a business unit of [employer] [employer] a wholly-owned subsidiary of [employer]. . Any image or images that accompany this report are eligibility services representative images only and should not be used to render a diagnosis. . This test was developed and its performance characteristics determined by [facility]. It has not been cleared or approved by the Food and Drug Administration (FDA). The FDA has determined that such clearance or approval is not necessary. . For inquiries, the physician may contact Lab: [phone] . A complete copy of the report is on file. . Professional services performed by [facility]. at [address], [place] [address]. Technical services performed by [facility] [employer]. at [address], [place] [address]. . (IUV:amj 01/29/2019) . . AZJ/01/30/2019 Addendum Electronically Signed by Nelly Jackson MD, Pathologist . 02 Electronically signed: . Nelly Jackson MD, Pathologist NPI- [id number] . 01 Gross description: . The specimen is received in formalin, labeled "Jd Castañeda, right neck mass", few needle cores and its fragments measuring 0.6 x 0.2 cm in aggregate. The specimen is entirely submitted in A1-A3. Also received is an RPMI tube labeled with patient name and "right neck mass", the specimen is forwarded for flow cytometry studies. ([facility]; 01/26/2019) [facility] 01/26/2019 1847 Local . 02 Pathologist provided ICD-10: C79.89 . 02 CPT . 547375, O89752, D80395 Specimen Comment: A courtesy copy of this report has been sent to [phone] Specimen Comment: [address] [place] [address] PATHOLOGY RPT PROCEDURE Name: JD CASTAÑEDA Room #: REG CLI Precious#: [id number] Admission: 01/26/19 Date of : 53 Discharge: Report #: [id number] Path Case #: [id number] Specimen Comment: Report sent to / DR CARDONA Performed at: [address], [place], [place] [id number] MD Jude Henry MD Phone: [phone] Performed at: [address], [place], [place] [id number] MD Nelly Jackson MD Phone: [phone]
== END | disposition home or self-care (01) ==
LOC: ULTRA 10:44
DX: R22.1 Localized swelling, mass and lump, neck (principal); C79.89 Secondary malignant neoplasm of other specified sites; I10 Essential (primary) hypertension; I48.92 Unspecified atrial flutter; Z98.890 Other specified postprocedural states; Z79.01 Long term (current) use of anticoagulants; Z79.899 Other long term (current) drug therapy; Z85.118 Personal history of other malignant neoplasm of bronchus and lung

== ENCOUNTER 2019-09-30 18:28 | Emergency (ER) | payer OTHER, BC ==
[~2019-09-30] VITALS: Ht 180.3 cm; Wt 104.3 kg
[2019-09-30 18:34] VITALS: BP 121/80
[2019-09-30 20:08] LABS: ANION GAP 7 mmol/L (7-16); BUN 27 mg/dL (7-18); CHLORIDE 99 mmol/L (98-107); CO2 28 mmol/L (21-32); CREATININE 1.4 mg/dL (0.7-1.3); GLUCOSE 166 mg/dL (74-106); SODIUM 134 mmol/L (136-145)
[2019-09-30 20:19] LABS: ALBUMIN 3.4 g/dL (3.4-5.0); MAGNESIUM 1.9 mg/dL (1.8-2.4); PHOSPHORUS 3.6 mg/dL (2.5-4.9); SGOT 32 U/L (15-37); SGPT 31 U/L (30-65); TOTAL BILIRUBIN 0.2 mg/dL (0.2-1.0); TOTAL PROTEIN 6.6 g/dL (6.4-8.2); TROPONIN-I <0.06 ng/mL (<0.06)
[2019-09-30 20:42] LABS: ABSOLUTE NEUTROPHILS 4.6 thou/uL (1.4-8.2); BASOPHILS 0.4 % (0.0-2.0); EOSINOPHILS 0.2 % (0.0-3.0); HEMOGLOBIN 11.9 gm/dL (14.0-18.0); LYMPHOCYTES 11.4 % (24.0-44.0); MCV 85.3 fL (80.0-100.0); MONOCYTES 7.5 % (1.0-8.0); PLATELET COUNT 176 thou/uL (150-400); POLYS 80.5 % (36.0-66.0); RDW 17.3 % (10.5-14.5); WBC 5.7 thou/uL (4.0-11.0)
[2019-09-30] MEDS ORDERED: NAPROXEN375 MG PO (21:04)
[2019-09-30] MEDS ORDERED: NORFLEX100 MG PO (21:04)
--- NOTE | 2019-10-01 09:13 | EKG ---
[facility] [place] [address] [place] [address] ELECTROCARDIOGRAM REPORT Name: JD CASTAÑEDA Room #: DEP [facility]#: [id number] Admission: 09/30/19 Attend Phys: Discharge: 09/30/19 Date of : 53 Report #: [id number] THIS REPORT FOR: cc: Rashi Xavier James A. DO Lundgren, Craig H. MD [facility] ~ THIS REPORT FOR: //name// [facility] ED Test Date: 2019-09-30 Test Time: 20:18:59 Pat Name: JD CASTAÑEDA Department: Room: Gender: Associate Software Development Engineer: issac : 1955 Requested By: Marcos Riggs Order Number: [id number] MD: Ayaz Henderson Measurements Intervals [place] Rate: 68 P: 9 AR: 160 QRS: 39 QRSD: 85 T: 48 QT: 382 QTc: 407 Interpretive Statements Sinus rhythm No significant abnormality Compared to ECG 01/02/2019 12:57:23 No significant changes Electronically Signed On 10-01-2019 9:13:20 CDT by Ayaz Henderson [email or web address] <ELECTRONICALLY SIGNED> By: Ayaz Henderson MD, [facility] 10/01/19 0913 17 17 Ayaz Henderson MD, [facility] /EPI
== END 2019-09-30 21:28 | disposition home or self-care (01) ==
LOC: ER 18:28
PROVIDERS: Emergency Medicine
DX: R59.0 Localized enlarged lymph nodes (principal); M43.6 Torticollis; M79.642 Pain in left hand; M79.641 Pain in right hand; I10 Essential (primary) hypertension; Z87.891 Personal history of nicotine dependence; Z79.899 Other long term (current) drug therapy

== ENCOUNTER → 2019-10-02 | Outpatient (CLI) | payer OTHER, BC ==
[~2019-10-02] MED LIST changes: +NAPROXEN375 MG PO; +NORFLEX100 MG PO
== END ==
LOC: RAD 12:32
PROVIDERS: ATTEND Internal Medicine Pulmonary Disease
DX: J43.8 Other emphysema (principal); C34.91 Malignant neoplasm of unspecified part of right bronchus or lung

== ENCOUNTER 2019-11-04 19:06 | Emergency (ER) | payer OTHER, BC ==
[~2019-11-04] VITALS: Ht 180.3 cm; Wt 110.2 kg
[2019-11-04 19:46] LABS: BASOPHILS 0.8 % (0.0-2.0); EOSINOPHILS 0.4 % (0.0-3.0); HEMOGLOBIN 14.3 gm/dL (14.0-18.0); LYMPHOCYTES 15.7 % (24.0-44.0); MCH 28.8 pg (26.0-34.0); MCHC 34.1 g/dL (28.0-37.0); MCV 84.4 fL (80.0-100.0); MONOCYTES 7.9 % (1.0-8.0); POLYS 75.2 % (36.0-66.0); RBC 4.97 mil/uL (4.50-6.00); RDW 18.7 % (10.5-14.5); WBC 5.8 thou/uL (4.0-11.0)
[2019-11-04 19:51] LABS: CALCIUM 8.6 mg/dL (8.5-10.1); CREATININE 1.4 mg/dL (0.7-1.3); POTASSIUM 4.2 mmol/L (3.5-5.1)
[2019-11-04 19:56] LABS: PROTIME 10.3 Seconds (9.3-11.4)
[2019-11-04 19:57] LABS: ALBUMIN 3.2 g/dL (3.4-5.0); TOTAL BILIRUBIN 0.4 mg/dL (0.2-1.0); TOTAL PROTEIN 6.7 g/dL (6.4-8.2)
[2019-11-04 20:24] LABS: URINE BILIRUBIN NEGATIVE (Negative); URINE BLOOD 3+ (Negative); URINE CLARITY CLEAR; URINE COLOR YELLOW; URINE GLUCOSE-RANDOM* NEGATIVE (Negative); URINE KETONES NEGATIVE (Negative); URINE LEUKOCYTES-REFLEX NEGATIVE (Negative); URINE NITRITE-REFLEX NEGATIVE (Negative); URINE PROTEIN (DIPSTICK) NEGATIVE (Negative); URINE SPECIFIC GRAVITY 1.025 (1.005-1.035)
[2019-11-04 20:30] LABS: PLATELET COUNT 131 thou/uL (150-400)
[2019-11-04 20:33] LABS: BACTERIA-REFLEX 1-9 Few /HPF (None Seen); CASTS None Seen /LPF (None Seen); CRYSTALS None Seen /LPF (None Seen); SQUAMOUS None Seen /LPF (0-3); URINE RBC >20 Many /HPF (0-2); URINE WBC-REFLEX None Seen /HPF (0-5)
[2019-11-04] MEDS ORDERED: LINZESS290 MCG PO (20:49)
[2019-11-04] MEDS ORDERED: KEFLEX500 M1 PO (21:32)
[2019-11-04] MEDS ORDERED: PERCOCET 5-3251 EACH PO (21:49)
[2019-11-04 22:03] VITALS: BP 111/87
--- NOTE | 2019-11-06 16:01 | EKG ---
[facility] [place] [address] ELECTROCARDIOGRAM REPORT Name: JD CASTAÑEDA [facility] [id number] Admission: 11/04/19 Attend Phys: Discharge: 11/04/19 Date of : 53 Report #: [id number] THIS REPORT FOR: cc: Rashi Xavier James A. DO Couchonnal, Luis F. MD ~ THIS REPORT FOR: //name// [facility] ED Test Date: 2019-11-04 Test Time: 20:30:11 Pat Name: JD CASTAÑEDA Department: Room: Gender: Sub Acute Care Nurse: : 1955 Requested By: Lalo Bustillo Order Number: [id number] MD: Gume Jauregui Measurements Intervals [place] Rate: 117 P: 9 MD: 158 QRS: 19 QRSD: 78 T: 54 QT: 293 QTc: 409 Interpretive Statements Sinus tachycardia Baseline wander in lead(s) V1,V2 Compared to ECG 10/06/2019 20:27:52 Sinus rhythm no longer present Electronically Signed On 11-06-2019 16:01:02 CDT by Gume Jauregui [email or web address] <ELECTRONICALLY SIGNED> By: Gume Jauregui MD 11/06/19 1601 2030 29 Gume Jauregui MD /EPI
== END 2019-11-04 22:04 | disposition home or self-care (01) ==
LOC: ER 19:06
PROVIDERS: Emergency Medicine
DX: R31.9 Hematuria, unspecified (principal); J02.9 Acute pharyngitis, unspecified; R06.2 Wheezing; R00.0 Tachycardia, unspecified; R53.1 Weakness; I10 Essential (primary) hypertension; M79.10 Myalgia, unspecified site; C77.9 Secondary and unspecified malignant neoplasm of lymph node, unspecified; C71.9 Malignant neoplasm of brain, unspecified; Z98.890 Other specified postprocedural states; Z79.899 Other long term (current) drug therapy; Z87.891 Personal history of nicotine dependence

== ENCOUNTER 2019-11-16 00:02 | Inpatient (IN) | payer OTHER, BC ==
[2019-11-16] VITALS (9 sets, daily range): BP systolic 109–145; BP diastolic 69–77
[~2019-11-16] VITALS: Ht 180.3 cm; Wt 100.2 kg
[~2019-11-16 00:02] MED LIST changes: +KEFLEX500 M1 PO; +LINZESS290 MCG PO; +PERCOCET 5-3251 EACH PO
[2019-11-16] MEDS ORDERED: LIPITOR40 MG PO (00:36)
[2019-11-16] MEDS ORDERED: ELIQUIS5 MG PO (00:36)
[2019-11-16] MEDS ORDERED: PROAIR RESPICL90 MCG INH (00:36)
[2019-11-16] MEDS ORDERED: DIAZEPAM 5 MG5 M1 PO (00:39)
[2019-11-16] MEDS ORDERED: DILTIAZEM ER180 M2 PO (00:40)
[2019-11-16] MEDS ORDERED: NEURONTIN300 MG PO (00:40)
[2019-11-16] MEDS ORDERED: METFORMIN HCL500 M3 PO (00:41)
[2019-11-16] MEDS ORDERED: KEPPRA XR500 MG PO (00:41)
[2019-11-16] MEDS ORDERED: NAPRELAN375 MG PO (00:42)
[2019-11-16] MEDS ORDERED: OMEPRAZOLE 20 M20 M1 PO (00:42)
[2019-11-16] MEDS ORDERED: ORPHENADRINE C100 M2 PO (00:43)
[2019-11-16] MEDS ORDERED: OXYCODONE HCL E10 MG PO (00:43)
[2019-11-16] MEDS ORDERED: PERCOCET 5-3251 EACH PO (00:44)
[2019-11-16] MEDS ORDERED: PROTONIX 20 MG20 M1 PO (00:44)
[2019-11-16] MEDS ORDERED: PROMETH-CODEIN 65 ML PO (00:46)
[2019-11-16] MEDS ORDERED: BACTRIM DS TAB1 EAC1 PO (00:47)
[2019-11-16 01:47] LABS: ABSOLUTE NEUTROPHILS 7.1 thou/uL (1.4-8.2); BASOPHILS 0.3 % (0.0-2.0); EOSINOPHILS 0.1 % (0.0-3.0); HEMATOCRIT 36.8 % (42.0-52.0); HEMOGLOBIN 12.6 gm/dL (14.0-18.0); LYMPHOCYTES 4.8 % (24.0-44.0); MCH 28.6 pg (26.0-34.0); MCHC 34.2 g/dL (28.0-37.0); MCV 83.6 fL (80.0-100.0); PLATELET COUNT 246 thou/uL (150-400); POLYS 89.8 % (36.0-66.0); RBC 4.41 mil/uL (4.50-6.00); RDW 18.3 % (10.5-14.5); WBC 7.9 thou/uL (4.0-11.0)
[2019-11-16 01:52] LABS: URINE BILIRUBIN NEGATIVE (Negative); URINE BLOOD 1+ (Negative); URINE CLARITY CLEAR; URINE COLOR YELLOW; URINE GLUCOSE-RANDOM* NEGATIVE (Negative); URINE KETONES NEGATIVE (Negative); URINE LEUKOCYTES-REFLEX NEGATIVE (Negative); URINE NITRITE-REFLEX NEGATIVE (Negative); URINE PROTEIN (DIPSTICK) NEGATIVE (Negative); URINE SPECIFIC GRAVITY >= 1.030 (1.005-1.035)
[2019-11-16 01:59] LABS: MUCUS 0-3 Light strn/LPF (None Seen); SQUAMOUS None Seen /LPF (0-3)
[2019-11-16 02:00] LABS: AMORPHOUS URATES Few /LPF (None Seen); BACTERIA-REFLEX None Seen /HPF (None Seen); CRYSTALS None Seen /LPF (None Seen); HYALINE CASTS 0-3 Few /LPF (None Seen); URINE RBC 0-2 Rare /HPF (0-2); URINE WBC-REFLEX None Seen /HPF (0-5)
[2019-11-16 02:00] LABS: CREATININE 1.9 mg/dL (0.7-1.3); POTASSIUM 4.2 mmol/L (3.5-5.1)
[2019-11-16 02:08] LABS: DIRECT BILIRUBIN 0.2 mg/dL (<0.1-0.2); TOTAL BILIRUBIN 1.3 mg/dL (0.2-1.0)
--- NOTE | 2019-11-16 05:45 | NUR ---
CODE STROKE CALLED FOR LEFT FACIAL DROOP. NIH COMPLETED WITH A SCORE OF 7. BLOOD GLUCOSE 161. VITAL SIGNS CHARTED. LABS AND CT HEAD ORDERED. LUMBER MATERIAL HANDLER AT BEDSIDE. WILL CONTINUE TO MONITOR.
[2019-11-16 06:10] LABS: APTT 34.2 Seconds (24.5-32.8); INR 1.2; PROTIME 12.1 Seconds (9.3-11.4)
--- NOTE | 2019-11-16 07:48 | NUR ---
PT IS ALERT AND ORIENTED X4. CAME TO ROOM VIA EMERGENCY ROOM FOR AM ADMISSION. PT LEFT ARM, DROOPING. AND FACIAL NUMBNESS NOTED AND DYSPHAGIA IN SPEECH NOTED. AND REPORT OF THIS NOT TOLD. QUICKLY DID A STROKE NIH SCORE OF 7. CALLED [facility]. IMEDIATELY [facility] AND TOOK PT VIA BED STAT FOR CT OF HIS HEAD. DR. MASCORRO DISSCUSSED PLAN OF CARE AFTER RESULTS AND PT WISHES ARE TO BE A DNR. HAS LUNG CANCER THAT HAS METS TO THE BRAIN. LEFT ARM DROOPING. AND LEFT LEG DRIFTS. VOIDS PER URINAL. PT IS VERY PLEASANT REGARDLESS OF HIS CONDITION. WILL CONTINUE TO ASSESS AND MONITOR PER SALONI. AND SHITAL AWARE OF HIS ADMISSION AND WILL CONSULT THIS AM
--- NOTE | 2019-11-16 13:31 | NUR ---
CM RTRN PT'S , KARIN'S CALL. KARIN STATED SHE HAD SPOKEN W/PT'S DOCTOR, WHO RECOMMENDED HOSPICE. KARIN SAID SHE SPK W/WOODY TODAY AND TOLD THEM THEY [FAMILY] WILL BE MOVING FORWARD W/HOSPICE. KARIN HAD NO PREFERENCE FOR HOSPICE PROVIDER. KARIN WAS AUDIABLY UPSET, CM OFFERED CONDOLENCES AND EMPATHETIC LISTENING. CM ATTEMPTED TO EDU BOTH PT AND KARIN ABOUT HOSPICE THEY BOTH STATED (AT SEPERATE OCCASSIONS) KNEW WHAT HOSPICE WAS. CM SPOKE W/BABITA, CLINICAL DIRECTOR AND ADRIANO, RN FROM [facility]. FAXED REFERRAL [phone]. CM INFORMED BABITA AND ADRIANO PT HAS D/C ORDERS FOR TODAY SO WOULD LIKE TO HAVE EQUIP SET UP TODAY SO CM CAN ESTAB TRANSPORTATION FOR PT. ADRIANO STATED SHE IN ROUTE AND WILL CALL CM AFTER SHE SPEAKS W/PT AND FAMILY. CM TO CONT TO FOLLOW.
--- NOTE | 2019-11-16 17:53 | NUR ---
PT CARE ASSUMED AT 0700. ASSESSMENTS CHARTED. MEDICATION CHARTED. PT WEAK ON LEFT SIDE. UPSET EARLY ON; WANTED TO SIT IN THE CHAIR; BUT COULDN'T GET OUT PAST THE BED SIDES; WAS FINALLY ABLE AFTER CONTACTING THE RN'S. PT DISCHARGED TO HOME. TELEMETRY D/C'D. IV D/C'D.
[2019-11-17 04:06] LABS: GLYCOHEMOGLOBIN (HGB A1C) 7.1 % (4.8-5.6)
--- NOTE | 2019-11-19 07:07 | HC ---
[facility] [place] [place] [address] CONSULTATION Name: JD CASTAÑEDA Room #: 205-P [facility] M.R.#: [id number] Admission: 11/16/19 Attend Phys: Bryant Aldana MD Discharge: 11/16/19 Date of : 53 Report #: [id number] THIS REPORT FOR: cc: Rashi Xavier James A. DO McKittrick, Richard James MD ~ CC: Bryant Zarate MD DATE OF SERVICE: 11/16/2019 REASON FOR CONSULTATION: Metastatic small cell lung cancer. HISTORY OF PRESENT ILLNESS: The patient is a very pleasant 64-year-old gentleman who has been a patient of [facility] since his diagnosis in 11/2017. He has had many courses of chemotherapy and radiation therapy for his recurrent cancer. He has had recurrent brain mets, lymph node metastasis, etc. He had recently completed radiation therapy, I believe to the brain and also his right neck. The patient came in with troubles with swallowing and weakness and also during the night, was found to have left arm droopiness and weakness. A CT of the head appears to show progression of a right frontal mass compared to 2 months ago. In talking with the patient about his progressive disease, we talked about whether to continue aggressive therapy interventions or palliative care. He is tired of all the treatments and is agreeable with proceeding towards palliative care, comfort measures after I talked with his . I did try reaching his , Candice on her cell phone and had to leave a message. Her number is [phone]. PAST MEDICAL HISTORY: Notable for initial and recurrent small cell lung cancer. 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 He also has a history of numbness of his right hand and weakness of his left arm. SOCIAL HISTORY: He is disabled, not currently smoking. No alcohol, no street drugs. FAMILY HISTORY: Noncontributory. MEDICATIONS: At this time include, levetiracetam 500 mg b.i.d., famotidine 20 daily, morphine p.r.n., insulin on a sliding scale, Zofran p.r.n., ceftriaxone was given in the ER. [address] [address] CONSULTATION Name: JD CASTAÑEDA Room #: [address] [place] [address] [place] M.R.#: [id number] Admission: 11/16/19 Attend Phys: Bryant Aldana MD Discharge: 11/16/19 Date of : 53 Report #: [id number] PHYSICAL EXAMINATION: GENERAL: The patient appears his stated age. VITAL SIGNS: His height is 5 feet 11, 180.3 cm. Weight is 221 pounds, 100.25 kilograms. Blood pressure is 145/77, O2 sat 94%, respirations 20, pulse 100, temperature 99.2. NEUROLOGIC: He is alert and talkative, does not like to move his left arm, but also feels that it is weak. His vision appears to be good out of both eyes. HEENT: His face looks symmetrical. He does have cutaneous metastasis on his upper chest and also has enlarged lymph nodes in his right neck. LUNGS: Mostly clear, though there is some soft rhonchi centrally. No wheezes. HEART: Regular rate. ABDOMEN: Slightly obese. No definite organomegaly. EXTREMITIES: Without clubbing, cyanosis or edema. LABORATORY DATA: Today, BUN of 35, creatinine 1.9, AST 49. Protime 12.1, INR 1.2. White count 7.9, hemoglobin 12.6, platelets 246. UA negative for nitrite or leukocytes or bacteria. ASSESSMENT AND PLAN: 1. Extensive stage small cell lung cancer with multiple therapies in the past, but ____ progression. After a long talk with the patient, would lean towards palliative care and comfort measures and perhaps going home later today. We will talk to his before ____. 2. Pain control. Continue his morphine and other medicines. 3. Seizure history. Continue levetiracetam. 4. Stomach prophylaxis. Agree with acid blockers. We will follow with you. ADDENDUM: Could also continue steroids to help with swelling. This would ____ dose of around dexamethasone 4 mg b.i.d. <ELECTRONICALLY SIGNED> By: Lewis Shannon MD 11/19/19 0707 0814 1232 Lewis Shannon MD /nt
== END 2019-11-16 17:56 | disposition home or self-care (01) | DRG 841 ==
LOC: ER 00:02 → EROBS 03:15 → 2N 03:15
PROVIDERS: Emergency Medicine; Nurse Practitioner Acute Care; ADMIT Hospitalist; ATTEND Hospitalist
DX: C77.9 Secondary and unspecified malignant neoplasm of lymph node, unspecified (principal); N17.9 Acute kidney failure, unspecified; C79.31 Secondary malignant neoplasm of brain; C79.89 Secondary malignant neoplasm of other specified sites; C34.90 Malignant neoplasm of unspecified part of unspecified bronchus or lung; I48.4 Atypical atrial flutter; R13.10 Dysphagia, unspecified; I10 Essential (primary) hypertension; Z66 Do not resuscitate; E11.9 Type 2 diabetes mellitus without complications; E86.0 Dehydration; J38.00 Paralysis of vocal cords and larynx, unspecified; Z87.891 Personal history of nicotine dependence; Z79.899 Other long term (current) drug therapy
CPT/HCPCS: 10081